=== PATIENT | female | born 1990 | race Two or more races ===

== ENCOUNTER 2021-04-08 20:29 | Emergency (ER) | payer SELFPAY ==
[~2021-04-08] VITALS: Ht 162.6 cm; Wt 59.0 kg
[2021-04-09 00:07] VITALS: BP 115/81
[2021-04-09] MEDS ORDERED: IBUPROFEN 800 MG TAB PO ONE (00:15)
[2021-04-09] MEDS ORDERED: ACETAMINOPHEN 500 MG TAB PO ONE (00:15)
== END 2021-04-09 01:20 | disposition home or self-care (01) ==
LOC: ER 20:32
DX: S92.354A Nondisplaced fracture of fifth metatarsal bone, right foot, initial encounter for closed fracture (principal); S90.31XA Contusion of right foot, initial encounter; Z88.0 Allergy status to penicillin; W18.39XA Other fall on same level, initial encounter; Y93.89 Activity, other specified; Y92.89 Other specified places as the place of occurrence of the external cause; Y99.8 Other external cause status
CPT/HCPCS: 29515; 73620